=== PATIENT | male | born 1980 | race African-American/Black ===

== ENCOUNTER 2017-05-12 13:14 | Emergency (ER) | payer BC ==
--- NOTE | 2017-05-12 13:32 | UC ---
Upper Extremity HPI - HPI Summary HPI Summary: 36yo otherwise healthy M states his R elbow has been hurting off and on for about 1 month. The pain is in the lateral elbow and occurred initially after shoveling snow. Since that time, he has had "flares" of the discomfort. It has not turned red or been swollen. He is right handed. Denies numbness or weakness. Non-smoker. No fall or defined injury to the area. 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 No warmth or tenderness to touch. All Other Systems Reviewed And Are Negative: Yes Physical Exam Triage Information Reviewed: Yes Appearance: Well-Appearing, No Pain Distress, Well-Nourished Neck: Positive: Supple Respiratory: Positive: Chest non-tender, Lungs clear, Normal breath sounds Cardiovascular: Positive: RRR, No Murmur Musculoskeletal Exam: Other - Full ROM without pain, crepitance R elbow. No warmth or tenderness to palpation. Subjective tenderness in lateral side just prox to elbow without deformity or mass. Neurological Exam: Normal Neurological: Positive: Alert Skin Exam: Normal Upper Extremity Course/Dx - Course Course Of Treatment: pt with lat elbow tendon insertion site pain. Suspect epicondilitis. Tx symptomatically. Recommend commercially available support band. - Differential Dx/Diagnosis Differential Diagnosis/HQI/PQRI: Arthritis, Bursitis, Other - tendonitis/ epicondylitis Provider Diagnoses: lateral epicondylitis, Right elbow Discharge - Sign-Out/Discharge Documenting (check all that apply): Discharge - Discharge Plan Condition: Good Disposition: HOME Prescriptions: Naproxen Sodium [Naproxen Sodium 500 MG TAB] 500 mg PO BID PRN #10 tab PRN Reason: Pain predniSONE TAB* [Deltasone TAB*] 50 mg PO DAILY #3 tab Patient Education Materials: Tennis Elbow (ED) Referrals: Tyler Barron MD [Primary Care Provider] - Additional Instructions: avoid rotating motions of the forearm. Buy a brace as discussed for tennis/ golfer's elbow. Ice. Rest. Return if worse or other concerns. - Billing Disposition and Condition Condition: GOOD Disposition: HOME
== END 2017-05-12 13:40 | disposition home or self-care (01) ==
LOC: UCEAST 13:14
DX: M77.11 Lateral epicondylitis, right elbow (principal)
CPT/HCPCS: 99212; G0463